=== PATIENT | female | born 1965 | race Caucasian/White ===

== ENCOUNTER → 2017-06-04 | Day surgery (SDC) | payer OTHER ==
[~2017-06-04] MED LIST: GABAPENTIN600 MG PO; KEFZOL IV; PERCOCET5/325 PO; ZOLOFT100 MG PO
--- NOTE | ~2017-06-04 | CR21 ---
[facility] A Service of [facility] & [facility] RADIOLOGY TEXT RESULTS PATIENT: DEMETRIS ERWIN LOCATION: [facility] : [birth year] UNIT #: [id number] AGE: [address]: Agus Blackburn MD SEX: F ORDER DR: [id number] [facility] [address] [place], [place] [address] [id number] O MR#: [id number] Acc #: [id number] NAME: DEMETRIS ERWIN : 1965 SEX: F STUDY DATE/TIME: 06/04/2017 10:59 UNIT: [facility] ROOM: STUDY DESCRIPTION: CR Ankle Min 3 Views Rt Attending Physician: Agus Blackburn M.D. Ordering Physician: Agus Blackburn M.D. Primary Care Physician: Zoey Mcgrawhead MEDICAL IMAGING REPORT This report is preliminary unless electronic signature is present EXAM C-arm fluoroscopy with 8 permanent images of the right ankle, 06/04/2017. HISTORY ORIF, right ankle fracture. FINDINGS C-arm fluoroscopy was provided for use in the operating room. Eight spot film radiographs of the right ankle were obtained in the anterior and lateral projections documenting placement of surgical plate and screws across the distal fibula and across the medial malleolus. The bones appear in anatomic alignment. 3 minutes, 15 seconds of fluoroscopy time was utilized. Dictated by... Agus Cannon M.D. THIS IS AN ELECTRONICALLY VERIFIED REPORT Agus Cannon M.D. at 06/05/2017 7:28 AM TYRESE/yomi TD: 06/04/2017 15:39 JOB #: [id number] MEDICAL IMAGING REPORT Page 1 of 1 COPY
--- NOTE | ~2017-06-04 | OR ---
Unit #: [id number] #: [id number] Patient: DEMETRIS ERWIN [id number] [address] [place], [place] [address] [id number] O MR#: [id number] NAME: DEMETRIS ERWIN ROOM: Date of Procedure: 06/04/2017 Admission Date: 06/04/2017 Surgeon: Agus Blackburn M.D. : 1965 Attending Physician: Agus Blackburn M.D. Primary Care Physician: Zoey Mcgrawhead OPERATIVE REPORT PREOPERATIVE DIAGNOSIS Right trimalleolar ankle fracture dislocation. POSTOPERATIVE DIAGNOSIS Right trimalleolar ankle fracture dislocation. PROCEDURE PERFORMED 1. Open reduction and internal fixation of right lateral and medial malleolus for fixation of trimalleolar fracture. 2. Right ankle syndesmosis stabilization with TightRope. IMPLANTS 1. Arthrex 8-hole locking fibular plate. 2. Arthrex 3-hole medial hook plate. 3. Arthrex TightRope for syndesmosis stabilization. EMBOSSING MACHINE OPERATOR Serena Harvey. ANESTHESIA General with regional nerve block. ESTIMATED BLOOD LOSS 25 mL. COMPLICATIONS None apparent. DRAINS None. SPECIMENS None. INDICATIONS FOR PROCEDURE Ms. Lomax is a 51-year-old female with a right trimalleolar ankle fracture dislocation. She was reduced in the emergency department after one or two failed reduction attempts. At her initial outpatient office visit, she was noted to have substantial fracture, blisters, and soft tissue swelling which precluded an operative intervention. She has been elevating the affected right lower extremity. We have delayed surgical intervention. She now returns with a soft tissue envelope more amenable to surgical Unit #: [id number] #: [id number] Patient: DEMETRIS ERWIN intervention. We discussed ORIF of the lateral and medial aspects with syndesmosis stabilization. The posterior malleolus is amenable to closed management. DESCRIPTION OF PROCEDURE The patient was identified in the preoperative holding area. The operative site was marked. Preoperative antibiotics were administered. A regional block was performed. The patient was brought to the operating room and placed supine on the operating table. A general anesthetic was induced. A bump was placed along the right thigh and buttocks. A tourniquet was applied to the right thigh. The right leg was prepped and draped in sterile fashion. An incision was made over the lateral aspect of the fibula. Dissection was carried down through the subcutaneous tissues and the fracture itself. The superficial peroneal nerve was noted to be a very close proximity to the fibula. This was dissected out so as to avoid any injury. Actually, it was very adherent in the soft tissues right directly at the fracture site. This was dissected free from the fracture and mobilized anteriorly and protected throughout the procedure. The fibula was comminuted with an intact shaft segment proximally, posterior butterfly piece, and then the distal shaft segment which was actually fractured longitudinally. This was a high fibular fracture and do the comminution, we were unable to directly anatomically reduced and clamped this. We had difficulty reestablishing a full fibular length. We ultimately elected to place a plate on the fibula and then reduced the fracture and reestablished length with the plate in place. The plate was secured distally with a nonlocking screw followed by 2 locking screws. We then used lobster claw clamps and manipulation of the plate and traction to reduce the fracture. Multiple attempts were performed. Once we had adequately restored fibular length, we then clamped across the fracture and secured the plate proximally with a nonlocking screw. The position of the fibula distally was checked under C-arm imaging. Once we were satisfied, we placed our remaining proximal screws, which were nonlocking screws. We then placed the remaining locking screws distally. We changed out our initial reduction screw distally as well for a shorter screw. At this point, we had reestablished the length and bridge the fracture. No attempt was made at direct lag screw fixation and primary bone healing. The entire fracture was effectively spanned with no screws and/or adjacent to the fracture. Attention was then turned medially. The medial soft tissues were opened and dissection carried down through the subcutaneous tissues. The medial malleolus was highly comminuted. There was multiple fragments of bone, which were loose and free and were removed. This left a slight defect. Etex EquivaBone 2.5 mL was mixed and a small amount of this placed into the defect. Due to the comminution, we were unable to fixate this with lag screw fixation. We placed a hook plate over the medial malleolar fragment. We were unable to capture the most distal fragment despite multiple attempts with the tines of the hook plate. There was even a longitudinal fracture in the medial malleolar fragment as well. It was felt this would essentially 4 fragments in the medial malleolus. Once we had adequately captured these with the tines of the hook plate, this was secured proximally with 2 screws in the tibial shaft. One of these was a cancellous 4.0 mm nonlocking screw and then 3.5 fully-threaded screw which engaged the contralateral cortex. The posterior luke of the plate was just anterior to the posterior tibial tendon. The posterior tibial tendon Unit #: [id number] #: [id number] Patient: DEMETRIS ERWIN itself was visualized and confirmed to be not captured by the plate. Attention was then turned to the syndesmosis stabilization. The syndesmosis was stable given the fracture pattern. A fibular button was selected for fixation. The drill was drilled through 4 cortices exiting the medial side posterior to the plate. The button was passed across and confirmed a flip on the far cortex under direct visualization. The TightRope was then gradually advanced padded. The fibula was actually felt to slide and move into an improved position. The position of the talus was then checked within the mortise. We had stable mortise with adequate repair of the syndesmosis to rotational stress testing. Sutures were removed. The tourniquet was then deflated under 2 hours and 15 minutes. The wounds were irrigated and then closed with a combination of 2-0 Vicryl and 3-0 nylon. Sterile dressings were applied. The patient was placed in a well-padded posterior splint. DISPOSITION Stable to recovery room. Dictated by... Leonid Rosado/raf TD: 06/04/2017 14:13 JOB #: [id number] OPERATIVE REPORT Page 1 of 1 X Agus Blackburn MD PROCEDURE OPERATIVE NOTE
== END | disposition home or self-care (01) ==
LOC: CSUR 06:41
DX: S82.851A Displaced trimalleolar fracture of right lower leg, initial encounter for closed fracture (principal); E89.0 Postprocedural hypothyroidism; X58.XXXA Exposure to other specified factors, initial encounter; Z88.6 Allergy status to analgesic agent; Z90.49 Acquired absence of other specified parts of digestive tract; Z98.890 Other specified postprocedural states; Z98.51 Tubal ligation status; Z79.899 Other long term (current) drug therapy
CPT/HCPCS: 73610; 76001; C1713; J0690; J2250; J2405; J2795; J3010

== ENCOUNTER 2017-06-17 11:29 | Inpatient (IN) | payer OTHER ==
[~2017-06-17] VITALS: Ht 165.1 cm; Wt 63.5 kg
--- NOTE | ~2017-06-17 | OR ---
Unit #: [id number] #: [id number] Patient: TOSHA ERWIN [id number] [address] [place], [place] [address] [id number] I MR#: [id number] NAME: TOSHA ERWIN ROOM: 477 Date of Procedure: 06/18/2017 Admission Date: 06/17/2017 Surgeon: Agus Blackburn M.D. : 1965 Attending Physician: Agus Blackburn M.D. Primary Care Physician: Zoey Norris OPERATIVE REPORT PREOPERATIVE DIAGNOSIS Postoperative wound dehiscence, status post open reduction and internal fixation of right ankle fracture. POSTOPERATIVE DIAGNOSIS Postoperative wound dehiscence, status post open reduction and internal fixation of right ankle fracture. PROCEDURES PERFORMED 1. Irrigation and debridement to fascia of medial and lateral incisions. 2. Complex revision wound closure on the lateral aspect of the ankle. 3. Application of wound VAC into the medial aspect of the ankle measuring 7 x 1.5 cm. PURCHASING AND CLAIMS SUPERVISOR Serena Harvey APRN, RNFA. ANESTHESIA General. ESTIMATED BLOOD LOSS 20 mL. COMPLICATIONS None apparent. INDICATIONS FOR PROCEDURE Tosha is a 51-year-old female with a trimalleolar ankle fracture dislocation. She had a large fracture blisters and soft tissue swelling. We delayed surgery in hopes of avoiding soft tissue related complications. Unfortunately, she has now returned with wound dehiscence on both medial and lateral aspects of the ankle. Irrigation and debridement in the operating room with possible revision and closure are indicated. DESCRIPTION OF PROCEDURE The patient was identified in the preoperative holding area. The operative site was marked. Preoperative antibiotics were not required as she is on standing IV antibiotics. The patient was brought to the operating room and placed supine on the operating table. A general anesthetic was induced. A tourniquet was applied to the right thigh. The right leg was then prepped and draped in sterile fashion. Unit #: [id number] #: [id number] Patient: TOSHA ERWIN Attention was turned to the lateral incision initially. Sutures were removed. The most proximal distal extent of the incision had healed, but there was a 10 cm or greater area of wound dehiscence. This area was debrided down to the level of fascia. There was soft tissue covering over the majority of the plate. The plate was exposed distally. There was reasonable skin mobility still. The wound was then irrigated. This was amenable to revision wound closure. The wound was closed with a combination of simple sutures and cmi-obym-fpqm-far retention stitches. Once we had reclosed the incision, attention was turned to the medial aspect of the ankle. Sutures were removed. Again,soft tissue was debrided down to level of fascia. There was no exposed plate in this location. Care was taken not to disrupt the soft tissue over the plate or dissected down past this. The wound was irrigated. This area of the ankle had poor skin edge mobility and excursion. A small wound VAC was applied to this area, which measured 7 x 1.5 cm. Good seal was achieved. Sterile dressings were then applied. The patient was placed back into a CAM walker boot to facilitate wound checks. DISPOSITION Stable to the recovery room. Dictated by... Leonid Rosado/raf TD: 06/18/2017 18:32 JOB #: [id number] OPERATIVE REPORT Page 1 of 1 X Agus Blackburn MD PROCEDURE OPERATIVE NOTE
--- NOTE | ~2017-06-17 | XA166 ---
[facility] A Service of [facility] & [facility] RADIOLOGY TEXT RESULTS PATIENT: DEMETRIS ERWIN LOCATION: [facility] 477-01 : [birth year] UNIT #: [id number] AGE: [address]: Agus Blackburn MD SEX: F ORDER DR: [id number] [facility] [address] [place], [place] [address] [id number] I MR#: [id number] #: [id number] NAME: DEMETRIS ERWIN : 1965 SEX: F STUDY DATE/TIME: 06/20/2017 9:05 UNIT: [facility] ROOM: [facility] STUDY DESCRIPTION: XA PICC Line Placement WO Port Attending Physician: Agus Blackburn M.D. Ordering Physician: Agus Blackburn M.D. Primary Care Physician: Zoey Pacheco [facility] IMAGING REPORT This report is preliminary unless electronic signature is present EXAM Right arm PICC line, 06/20/2017. HISTORY IV access needed. PRE-PROCEDURE The procedure was explained to the patient and/or patient primary care sales representative including risks, benefits, potential complications and potential for alternative forms of treatment. Informed consent was obtained, and prior to initiating the procedure a formal timeout procedure was performed. PROCEDURE Using full standard sterile barrier technique, including caps, gowns, gloves, masks, as well as sterile skin preparation and standard sterile draping, the arm was prepped and draped in the usual fashion, and real-time sterile ultrasound guidance was used to localize an arm vein and to confirm vessel patency. A hard copy ultrasound image was recorded. After local anesthesia with 1% Xylocaine, the vein was punctured using real-time sterile ultrasound guidance, and an 0.018 guidewire was advanced into the superior vena cava, using fluoroscopic guidance. A Spanish -lumen PICC was then measured and deployed with the tip positioned in the superior vena cava. The position of the line was documented with a radiographic image. The line was secured in place with an adhesive dressing and an antibiotic patch was applied. Total fluoro time was 0.2 minutes. IMPRESSION Successful placement of a 4 Spanish dual-lumen PowerPICC via the right arm under ultrasound and fluoroscopic guidance. The tip of the PICC is in good position in the superior vena cava. [facility]. [facility] A Service of [facility] RADIOLOGY TEXT RESULTS PATIENT: DEMETRIS ERWIN LOCATION: [facility] 477-01 : [birth year] UNIT #: [id number] AGE: [address]: Agus Blackburn MD SEX: F ORDER DR: Dictated by... Davis Rodriguez M.D. THIS IS AN ELECTRONICALLY VERIFIED REPORT Davis Rodriguez M.D. at 06/20/2017 4:05 PM PITER/edenilson TD: 06/20/2017 15:14 JOB #: [id number] MEDICAL IMAGING REPORT Page 1 of 1 COPY
--- NOTE | ~2017-06-17 | DS ---
Unit #: [id number] #: [id number] Patient: DEMETRIS ERWIN [id number] [address] [place], [place] [address] [id number] I MR#: [id number] NAME: DEMETRIS ERWIN ROOM: 47 Age: 51 Sex: F Admission Date: 06/17/2017 : 1965 Discharge Date: 06/21/2017 Attending Physician: Agus Blackburn M.D. Primary Care Physician: Zoey Pacheco [facility] [place] DISCHARGE SUMMARY ADMISSION DIAGNOSES 1. Postoperative wound dehiscence right ankle. 2. Postoperative wound infection right ankle. DISCHARGE DIAGNOSES Same. SECONDARY DIAGNOSES 1. Seizure disorder. 2. Depressive/anxiety disorder. PROCEDURES THIS HOSPITALIZATION 1. Irrigation and debridement with revision wound closure of the lateral incision. 2. Wound V.A.C. application to the medial incision on 06/18/2017. ADMISSION HISTORY Briefly, Ms. Erwin is a 51-year-old female with a right trimalleolar ankle fracture dislocation. She underwent ORIF fashion due to soft tissue concerns. Despite this, she has returned with wound breakdown and purulent drainage from medial and lateral incisions. She was admitted directly from the clinic on 06/17/2017 for initiation of IV antibiotic therapy. HOSPITAL COURSE Patient was admitted, as noted above, from the outpatient orthopedic office. The day following admission she was taken to the operating room where she underwent irrigation and debridement with revision wound closure on the lateral incision and application of a wound V.A.C. to the medial incision. Cultures have grown out MSSA, sensitive to cefazolin. She has done well postoperatively. Her wound V.A.C. has been changed. She has good early granulation tissue on the medial aspect of the incision. A new wound V.A.C. was applied this Friday. She is now medically stable for discharge home with home health followup for V.A.C. changes every Friday, Friday, Friday. Additionally, a PICC line has been placed for IV antibiotics for at least 2 weeks. She will be discharged on Kefzol 1 gram IV q.8 hours. Home health to follow with routine PICC line care and weekly labs. At the current time her pain is well controlled. She is medically stable for discharge home. She is experiencing some increased electrical-type pain over the dorsum of her foot. We will increase her Neurontin dosage from baseline to see if this alleviates any of this nerve type of pain. Unit #: [id number] #: [id number] Patient: DEMETRIS ERWIN DISCHARGE MEDICATIONS 1. Neurontin 600 mg p.o. t.i.d., which will be increased to 700 mg p.o. t.i.d. with a prescription written for an additional 100 mg tablet to be taken 3 times daily with her baseline dose. 2. Zoloft 100 mg p.o. daily. 3. Percocet 5/325 one to two tabs p.o. q.4 hours p.r.n. pain. 4. Kefzol 1 gram IV q.8 hours x2 weeks. DISCHARGE INSTRUCTIONS She should be nonweightbearing on the right lower extremity. She should have a wound V.A.C. change every Friday, Friday, Friday. She will follow up in 2 weeks' time. Dictated by... Agus Blacbkurn M.D. PARI/xander TD: 06/23/2017 17:53 JOB #: [id number] DISCHARGE SUMMARY Page 1 of 1 X Agus Blackburn MD DISCHARGE SUMMARY
[~2017-06-17 11:29] MED LIST changes: -KEFZOL IV
[2017-06-17 16:08] LABS: BASOPHIL% 0.1 % (0-2.5); EOSINOPHIL# 0.2 X10e3 (0-0.7); EOSINOPHIL% 1.5 % (0.0-7.0); HEMATOCRIT 29.9 % (35.0-45.0); LYMPHOCYTE% 18.6 % (17.0-45.0); MEAN CELL VOLUME 89.7 FL (83-96); MEAN CORPUSCULAR HEMOGLOBIN 30.2 PG (28-34); MEAN CORPUSCULAR HGB CONC 33.6 g/dL (30-36); MEAN PLATELET VOLUME 7.3 FL (6.5-11.5); MONOCYTE# 0.8 X10e3 (0-1.0); MONOCYTE% 6.8 % (3.0-12.0); PLATELET COUNT 541 X10e3 (140-420); RED BLOOD COUNT 3.33 X10e (3.90-5.30); RED CELL DISTRIBUTION WIDTH 14.9 % (11.0-15.5)
[2017-06-17 16:09] LABS: DIFF IND NO
[2017-06-17 16:24] LABS: BUN/CREATININE RATIO 21.66; CALCIUM SERUM 8.8 mg/dL (8.4-10.2); CREATININE SERUM 0.6 mg/dL (0.6-1.4); GLOM FILT RATE Estimated 106.3 mL/min (>60)
[2017-06-18 03:33] LABS: CALCIUM SERUM 8.5 mg/dL (8.4-10.2); CREATININE SERUM 0.5 mg/dL (0.6-1.4); GLOM FILT RATE Estimated 112.9 mL/min (>60); POTASSIUM 3.8 mmol/L (3.5-5.1)
[2017-06-20 04:11] LABS: CALCIUM SERUM 8.5 mg/dL (8.4-10.2); CREATININE SERUM 0.5 mg/dL (0.6-1.4); GLOM FILT RATE Estimated 112.9 mL/min (>60); POTASSIUM 3.9 mmol/L (3.5-5.1)
[2017-06-21] MEDS ORDERED: KEFZOL IV (10:39)
== END 2017-06-21 15:34 | disposition home health service (06) | DRG 857 ==
LOC: C4C 11:29 → UNDOADMIN 11:29 → C4C 11:30
PROVIDERS: Nurse Practitioner; Orthopaedic Surgery
PROC: 0JBQ0ZZ Excision of Right Foot Subcutaneous Tissue and Fascia, Open Approach (ICD-10-PCS; principal; 2017-06-18 12:30)
PROC: 02HV33Z Insertion of Infusion Device into Superior Vena Cava, Percutaneous Approach (ICD-10-PCS; 2017-06-20)
PROC: B518YZA Fluoroscopy of Superior Vena Cava using Other Contrast, Guidance (ICD-10-PCS; 2017-06-20)
PROC: B548ZZA Ultrasonography of Superior Vena Cava, Guidance (ICD-10-PCS; 2017-06-20)
DX: T81.4XXA Infection following a procedure, initial encounter (principal); T81.32XA Disruption of internal operation (surgical) wound, not elsewhere classified, initial encounter; F32.9 Major depressive disorder, single episode, unspecified; F41.9 Anxiety disorder, unspecified; G40.909 Epilepsy, unspecified, not intractable, without status epilepticus; K59.00 Constipation, unspecified; B95.61 Methicillin susceptible Staphylococcus aureus infection as the cause of diseases classified elsewhere; Z90.49 Acquired absence of other specified parts of digestive tract; E89.0 Postprocedural hypothyroidism
CPT/HCPCS: 76937; 77001; 80048; 80202; 84703; 85025; C1751; J0690; J1170; J1642; J1885; J2250; J2270; J2405; J3010; J3370